=== PATIENT | male | born 1955 | race Caucasian/White ===

== ENCOUNTER 2021-09-29 14:35 | Emergency (ER) | payer MEDICARE, OTHER ==
[~2021-09-29] VITALS: Ht 185.5 cm; Wt 87.0 kg
--- NOTE | 2021-09-29 14:44 | ED GU-Male ---
General Stated Complaint: BACK PAIN Source: patient Exam Limitations: no limitations History of Present Illness Date Seen by Provider: Sep 29, 2021 Time Seen by Provider: 14:37 Initial Comments Patient to the ER by private conveyance with chief complaint of right flank and back pain and some uncomfortable urination starting this morning getting significantly worse. [place] was at the theater and could not finish. He did take some ibuprofen a couple hours ago. He has a history of kidney stones that feel like this. The pain is quite significant waxing and waning. No nausea right now but he had some earlier. No vomiting. No fevers chills diarrhea or constipation. No history of abdominal surgeries or other significant medical history. He does not routinely take any medications. Allergies and Home Medications Allergies Coded Allergies: No Known Drug Allergies (Unverified , 09/29/21) Patient Home Medication List Home Medication List Reviewed: Yes Cephalexin (Cephalexin) 500 Mg Tablet, 500 MG PO BID Prescribed by: WENDI VERA on 09/29/21 1539 Hydrocodone/Acetaminophen (Hydrocodone-Acetamin 5-325 mg) 5 Mg-325 Mg Tablet, 1- 2 TAB PO Q6H PRN for PAIN-MODERATE (5-7) Prescribed by: WENDI VERA on 09/29/21 1539 Ondansetron (Ondansetron Odt) 4 Mg Tab.rapdis, 4 MG PO Q6H PRN for NAUSEA/VOMITING Prescribed by: WENDI VERA on 09/29/21 1539 Review of Systems Review of Systems Constitutional: No chills, No diaphoresis EENTM: No ear discharge, No ear pain Respiratory: No cough, No short of breath Cardiovascular: No chest pain, No edema Gastrointestinal: see HPI, abdominal pain; No constipation, No diarrhea, No nausea, No vomiting Genitourinary: see HPI; denies burning, denies discharge; dysuria, flank pain; denies hematuria Musculoskeletal: back pain; No joint pain All Other Systemes Reviewed Negative Unless Noted: Yes Past Bgezcaj-Toddxk-Clcizk Hx Patient Social History Tobacco Use?: No Use of E-Cig and/or Vaping dev: No Substance use?: No Physical Exam Vital Signs Vital Signs - First Documented 09/29/21 14:35 Temp 36.8 Pulse 78 Resp 24 B/P (MAP) 123/78 (93) Pulse Ox 98 O2 Delivery Room Air Capillary Refill : Height, Weight, BMI Height: '" Weight: lbs. oz. kg; BMI Method: General Appearance: WD/WN, mild distress HEENT: PERRL/EOMI, TMs normal, pharynx normal Neck: full range of motion, supple, normal inspection Cardiovascular: normal peripheral pulses, regular rate, rhythm, no edema Respiratory: lungs clear, normal breath sounds, no respiratory distress, no accessory muscle use Gastrointestinal: normal bowel sounds, non tender, soft Back: CVA tenderness (R) Extremities: normal range of motion, non-tender, normal capillary refill Neurologic/Psychiatric: alert, normal mood/affect, oriented x 3 Skin: normal color, warm/dry Progress/Results/Core Measures Suspected Sepsis SIRS Temperature: Pulse: Respiratory Rate: Laboratory Tests 09/29/21 14:48: White Blood Count 9.3 Blood Pressure / Mean: Laboratory Tests 09/29/21 14:48: Creatinine 1.24, Platelet Count 239, Total Bilirubin 0.6 Results/Orders Lab Results Laboratory Tests Test 09/29/21 14:48 09/29/21 15:11 Range/Units White Blood Count 9.3 4.3-11.0 10^3/uL Red Blood Count 5.02 4.30-5.52 10^6/uL Hemoglobin 14.4 13.3-17.7 g/dL Hematocrit 44 40-54 % Mean Corpuscular Volume 87 80-99 fL Mean Corpuscular Hemoglobin 29 25-34 pg Mean Corpuscular Hemoglobin Concent 33 32-36 g/dL Red Cell Distribution Width 14.0 10.0-14.5 % Platelet Count 239 130-400 10^3/uL Mean Platelet Volume 11.5 9.0-12.2 fL Immature Granulocyte % (Auto) 0 % Neutrophils (%) (Auto) 57 42-75 % Lymphocytes (%) (Auto) 33 12-44 % Monocytes (%) (Auto) 9 0-12 % Eosinophils (%) (Auto) 1 0-10 % Basophils (%) (Auto) 0 0-10 % Neutrophils # (Auto) 5.3 1.8-7.8 10^3/uL Lymphocytes # (Auto) 3.0 1.0-4.0 10^3/uL Monocytes # (Auto) 0.8 0.0-1.0 10^3/uL Eosinophils # (Auto) 0.1 0.0-0.3 10^3/uL Basophils # (Auto) 0.0 0.0-0.1 10^3/uL Immature Granulocyte # (Auto) 0.0 0.0-0.1 10^3/uL Sodium Level 142 135-145 MMOL/L Potassium Level 4.1 3.6-5.0 MMOL/L Chloride Level 107 98-107 MMOL/L Carbon Dioxide Level 23 21-32 MMOL/L Anion Gap 12 5-14 MMOL/L Blood Urea Nitrogen 18 7-18 MG/DL Creatinine 1.24 0.60-1.30 MG/DL Estimat Glomerular Filtration Rate 63 BUN/Creatinine Ratio 15 Glucose Level 125 H 70-105 MG/DL Calcium Level 9.7 8.5-10.1 MG/DL Corrected Calcium 9.5 8.5-10.1 MG/DL Total Bilirubin 0.6 0.1-1.0 MG/DL Aspartate Amino Transf (AST/SGOT) 20 5-34 U/L Alanine Aminotransferase (ALT/SGPT) 20 0-55 U/L Alkaline Phosphatase 81 40-136 U/L Total Protein 6.8 6.4-8.2 GM/DL Albumin 4.2 3.2-4.5 GM/DL Urine Color YELLOW Urine Clarity CLOUDY Urine pH 8.5 5-9 Urine Specific [place] 1.010 L 1.016-1.022 Urine Protein TRACE H NEGATIVE Urine Glucose (UA) NEGATIVE NEGATIVE Urine Ketones TRACE H NEGATIVE Urine Nitrite NEGATIVE NEGATIVE Urine Bilirubin NEGATIVE NEGATIVE Urine Urobilinogen 1.0 < = 1.0 MG/DL Urine Leukocyte Esterase TRACE H NEGATIVE Urine RBC (Auto) 2+ H NEGATIVE Urine RBC 2-5 H /HPF Urine WBC RARE /HPF Urine Squamous Epithelial Cells NONE /HPF Urine Crystals NONE /LPF Urine Amorphous Sediment MOD JASON PHOSPHATE H /LPF Urine Bacteria NEGATIVE /HPF Urine Casts NONE /LPF Urine Mucus NEGATIVE /LPF Urine Culture Indicated NO My Orders Orders - WENDI VERA Cbc With Automated Diff (09/29/21 14:41) Comprehensive Metabolic Panel (09/29/21 14:41) Ed Iv/Invasive Line Start (09/29/21 14:41) Ct Abd/Pelvis Wo(Kidney Stone) (09/29/21 14:41) Ua Culture If Indicated (09/29/21 14:44) Ketorolac Injection (Toradol Injection) (09/29/21 14:45) Ondansetron Injection (Zofran Injectio (09/29/21 15:00) Abdomen/Kub 1view (09/29/21 15:19) Medications Given in ED Current Medications Medications Dose Ordered Sig/Gilberto Route Start Time Stop Time Status Last Admin Dose Admin Ketorolac Tromethamine 30 mg ONCE ONCE IVP 09/29/21 14:45 09/29/21 14:46 DC 09/29/21 14:53 30 MG Ondansetron HCl 8 mg ONCE ONCE IVP 09/29/21 15:00 09/29/21 15:01 DC 09/29/21 15:12 8 MG Vital Signs/I&O 09/29/21 14:35 Temp 36.8 Pulse 78 Resp 24 B/P (MAP) 123/78 (93) Pulse Ox 98 O2 Delivery Room Air Capillary Refill : Progress Note : Time: 14:44 Progress Note Urine labs and a CT without IV contrast kidney stone protocol. 30 mg Toradol. Diagnostic Imaging Diagonstic Imaging: CT Plain Films/CT/US/NM/MRI: abdomen, pelvis Comments Distal to the left ureter about a centimeter proximal to the left UVJ there is a 5 mm stone. NAME: JING BETHEA [employer] REC#: [id number] PT STATUS: REG ER : 1955 PHYSICIAN: WENDI VERA MD ADMIT DATE: 09/29/21/ER Signed Date of Exam:09/29/21 CT ABD/PELVIS WO(KIDNEY STONE) PROCEDURE: CT urinary tract, rule out kidney stone. TECHNIQUE: Multiple contiguous axial images were obtained through the abdomen and pelvis without the use of intravenous contrast. Auto Exposure Controls were utilized during the CT exam to meet ALARA standards for radiation dose reduction. INDICATION: Flank pain. Nausea and vomiting. COMPARISON: None. FINDINGS: The heart is unremarkable. The lung bases are clear. A 5 mm calculus is seen in the distal left ureter just proximal to the left UVJ. There is mild left-sided hydroureteronephrosis. Additional nonobstructing calculi are seen in the left kidney measuring up to 0.4 cm. No hydronephrosis on the right. The urinary bladder is decompressed. The liver, spleen, pancreas and adrenal glands have a normal appearance. The gallbladder is unremarkable. There is no pathologically enlarged mesenteric or retroperitoneal adenopathy. The bowel loops are nondilated. The appendix is visualized in the right lower quadrant and has a normal appearance. Scattered diverticula are seen in the descending and sigmoid colon without evidence of acute diverticulitis. There is no free fluid or free air. No acute osseous abnormality. There is calcified aortic and iliac atherosclerotic plaque without aneurysm. There is no free air, loculated collection or adenopathy in the pelvis. IMPRESSION: 1. Calculus in the distal left ureter measuring 5 mm with mild left-sided hydroureteronephrosis. Additional nonobstructing calculi are seen in the left kidney. 2. Diverticuli in the descending and sigmoid colon without evidence of acute diverticulitis. Dictated by: Dictated on workstation # [id number] Dict: 09/29/21 1517 Trans: 09/29/21 1529 PJE [id number] Interpreted by: DANIELA ALLRED DO Electronically signed by: DANIELA ALLRED DO 09/29/21 1529 Reviewed: Reviewed by Me Diagonstic Imaging: Xray Plain Films/CT/US/NM/MRI: abdomen, pelvis Reviewed: Reviewed by Me Departure Impression Primary Impression: Ureteral calculus Disposition: 01 HOME, SELF-CARE Condition: Stable Departure-Patient Inst. Decision time for Depature: 15:31 Referrals: ALEXANDRA WILKES DO (PCP) Primary Care Physician LINETTE SHARMA MD Patient Instructions: Kidney Stones (DC), How to Strain Your Urine Add. Discharge Instructions: Drink plenty of fluids. Hydrocodone 1 to 2 tablets every 6 hours as needed to control pain. Ondansetron 1 to 2 tablets every 6 hours as needed to control nausea or vomiting. Ibuprofen 800 mg every 8 hours as needed for pain. If you have not passed the stone by tomorrow then call Dr. Sharma, urology and request follow-up on Thursday. Strain your urine to see if you can catch the stone. After the stone is passed typically symptoms will resolve in 1 to 2 days. Cephalexin 1 capsule twice a day for a week to prevent urinary tract infection. Scripts Cephalexin (Cephalexin) 500 Mg Tablet 500 MG PO BID for 7 Days, #14 TAB 0 Refills Prov: WENDI VERA 09/29/21 Hydrocodone/Acetaminophen (Hydrocodone-Acetamin 5-325 mg) 5 Mg-325 Mg Tablet 1-2 TAB PO Q6H PRN for PAIN-MODERATE (5-7), #14 TAB 0 Refills Prov: WENDI VERA 09/29/21 Ondansetron (Ondansetron Odt) 4 Mg Tab.rapdis 4 MG PO Q6H PRN for NAUSEA/VOMITING, #12 TAB 0 Refills Prov: WENDI VERA 09/29/21 Copy Copies To 1: LINETTE SHARMA MD, TITUS J Sep 29, 2021 14:44
[2021-09-29] MEDS ORDERED: KETOROLAC 30 MG/ML VIAL IVP ONE (14:45)
[2021-09-29] MEDS ORDERED: ONDANSETRON 4 MG/2 ML (SDV) Z0FRAN IVP ONE (15:00)
[2021-09-29 15:01] LABS: BASOPHILS % (AUTO) 0 % (0-10); EOSINOPHILS # (AUTO) 0.1 10^3/uL (0.0-0.3); EOSINOPHILS % (AUTO) 1 % (0-10); HEMATOCRIT 44 % (40-54); HEMOGLOBIN 14.4 g/dL (13.3-17.7); LYMPHOCYTES % (AUTO) 33 % (12-44); MEAN CORPUSCULAR HEMOGLOBIN 29 pg (25-34); MEAN CORPUSCULAR HGB CONC 33 g/dL (32-36); MEAN CORPUSCULAR VOLUME 87 fL (80-99); MEAN PLATELET VOLUME 11.5 fL (9.0-12.2); MONOCYTES # (AUTO) 0.8 10^3/uL (0.0-1.0); MONOCYTES % (AUTO) 9 % (0-12); NEUTROPHILS # (AUTO) 5.3 10^3/uL (1.8-7.8); NEUTROPHILS % (AUTO) 57 % (42-75); PLATELET COUNT 239 10^3/uL (130-400); WHITE BLOOD COUNT 9.3 10^3/uL (4.3-11.0)
[2021-09-29 15:02] LABS: ALBUMIN 4.2 GM/DL (3.2-4.5); POTASSIUM 4.1 MMOL/L (3.6-5.0)
[2021-09-29 15:04] LABS: CALCIUM 9.7 MG/DL (8.5-10.1)
[2021-09-29 15:05] LABS: TOTAL PROTEIN 6.8 GM/DL (6.4-8.2)
[2021-09-29 15:06] LABS: BILIRUBIN,TOTAL 0.6 MG/DL (0.1-1.0)
[2021-09-29 15:08] LABS: CREATININE SERUM 1.24 MG/DL (0.60-1.30)
[2021-09-29 15:17] LABS: BILIRUBIN,URINE NEGATIVE (NEGATIVE); CLARITY,URINE CLOUDY; COLOR,URINE YELLOW; GLUCOSE, URINE (UA) NEGATIVE (NEGATIVE); KETONES,URINE TRACE (NEGATIVE); LEUKOCYTE ESTERASE ,URINE TRACE (NEGATIVE); NITRITE,URINE NEGATIVE (NEGATIVE); PH,URINE 8.5 (5-9); PROTEIN,URINE TRACE (NEGATIVE)
--- NOTE | 2021-09-29 15:25 | Diagnostic Imaging Report ---
PROCEDURE: CT urinary tract, rule out kidney stone. TECHNIQUE: Multiple contiguous axial images were obtained through the abdomen and pelvis without the use of intravenous contrast. Auto Exposure Controls were utilized during the CT exam to meet ALARA standards for radiation dose reduction. INDICATION: Flank pain. Nausea and vomiting. COMPARISON: None. FINDINGS: The heart is unremarkable. The lung bases are clear. A 5 mm calculus is seen in the distal left ureter just proximal to the left UVJ. There is mild left-sided hydroureteronephrosis. Additional nonobstructing calculi are seen in the left kidney measuring up to 0.4 cm. No hydronephrosis on the right. The urinary bladder is decompressed. The liver, spleen, pancreas and adrenal glands have a normal appearance. The gallbladder is unremarkable. There is no pathologically enlarged mesenteric or retroperitoneal adenopathy. The bowel loops are nondilated. The appendix is visualized in the right lower quadrant and has a normal appearance. Scattered diverticula are seen in the descending and sigmoid colon without evidence of acute diverticulitis. There is no free fluid or free air. No acute osseous abnormality. There is calcified aortic and iliac atherosclerotic plaque without aneurysm. There is no free air, loculated collection or adenopathy in the pelvis. IMPRESSION: 1. Calculus in the distal left ureter measuring 5 mm with mild left-sided hydroureteronephrosis. Additional nonobstructing calculi are seen in the left kidney. 2. Diverticuli in the descending and sigmoid colon without evidence of acute diverticulitis. Dictated by: Dictated on workstation # [id number]
[2021-09-29 15:30] LABS: AMORPHOUS SEDIMENT,UR MOD AMOR PHOSPHATE /LPF; BACTERIA,URINE NEGATIVE /HPF; WBC,URINE RARE /HPF
[2021-09-29] MEDS ORDERED: CEPH500T PO (15:39)
[2021-09-29] MEDS ORDERED: ACHD5005 PO (15:39)
[2021-09-29] MEDS ORDERED: ONDA4TAB11 PO (15:39)
[2021-09-29 15:49] VITALS: BP 119/74
--- NOTE | 2021-09-29 16:11 | Diagnostic Imaging Report ---
REASON FOR EXAM: Abdominal pain. COMPARISON: CT of the abdomen and pelvis performed earlier the same date. TECHNIQUE: Frontal supine view of the abdomen. FINDINGS: The bowel gas pattern is nondistended. No large collection of free intraperitoneal air is seen. Scattered small amounts of gas and fecal material are present in the colon. Multiple phleboliths are seen in the pelvis. These are not well distinguished from the calculus in the distal left ureter. The nonobstructing calculus in the mid left kidney is noted. The osseous structures are age-appropriate. IMPRESSION: 1. No evidence of bowel obstruction or large collection of free intraperitoneal air. 2. Multiple phleboliths in the pelvis. The calculus in the distal left ureter is not well distinguished from these phleboliths. Dictated by: Dictated on workstation # [id number]
== END 2021-09-29 15:47 | disposition home or self-care (01) ==
LOC: ER 14:40
DX: N13.2 Hydronephrosis with renal and ureteral calculous obstruction (principal)
CPT/HCPCS: 36415; 74018; 74176; 80053; 81000; 85025

== ENCOUNTER → 2021-09-30 | Outpatient (CLI) | payer MEDICARE, OTHER ==
[~2021-09-30] MED LIST: ACHD5005 PO; CEPH500T PO; ONDA4TAB11 PO
== END ==
LOC: PREOP 16:06
PROVIDERS: ATTEND Urology
DX: Z01.818 Encounter for other preprocedural examination (principal); N20.1 Calculus of ureter

== ENCOUNTER → 2021-09-30 | Outpatient (CLI) | payer MEDICARE, OTHER ==
--- NOTE | 2021-09-30 17:45 | Diagnostic Imaging Report ---
INDICATION: Left ureteral calculus. COMPARISON: 09/29/2021. FINDINGS: Two frontal radiographic views of the abdomen were obtained. Multiple well-circumscribed calcifications are again identified projecting over the pelvis bilaterally. Size and number are stable compared to previous exam. Extraosseous calcification is also seen projecting over the left renal shadow, stable compared to prior exam. No unexpected radiopaque foreign bodies are seen. Small bowel loops are nondistended. There is no large collection of free intraperitoneal air. IMPRESSION: 1. Stable pelvic calcifications. 2. Left renal calculus. 3. Nonobstructed small bowel gas pattern. Dictated by: Dictated on workstation # [id number]
== END ==
LOC: RAD 13:26
PROVIDERS: ATTEND Urology
DX: N20.2 Calculus of kidney with calculus of ureter (principal)
CPT/HCPCS: 74018

== ENCOUNTER 2021-10-01 05:51 | Day surgery (SDC) | payer MEDICARE, OTHER ==
[2021-09-30 09:40] VITALS: BP 130/74
[~2021-10-01] VITALS: Ht 185 cm; Wt 87.0 kg
[2021-10-01] VITALS (12 sets, daily range): BP systolic 104–148; BP diastolic 57–82
[2021-10-01] MEDS ORDERED: cefTRIAXone 1 GM PRE-MIX 50 ML IV ONE ×2 (06:23→07:00)
[2021-10-01] MEDS: LACTATED RINGERS 1,000 ML IV SCH ×2 (06:30→08:25)
--- NOTE | 2021-10-01 07:09 | Progress Note-Pre Operative ---
Pre-Operative Progress Note H&P Reviewed The H&P was reviewed, patient examined and no changes noted. Date Seen by Provider: Oct 01, 2021 Time Seen by Provider: 07:09 Date H&P Reviewed: Oct 01, 2021 Time H&P Reviewed: 07:09 Pre-Operative Diagnosis: LT DISTAL URETERAL STONE LINETTE SHARMA MD Oct 01, 2021 07:09
--- NOTE | 2021-10-01 07:15 | Progress Note-Post Operative ---
Post-Operative Progess Note Surgeon (s)/Dentist Attendant (s) Surgeon LINETTE SHARMA MD Dentist Attendant: NONE Pre-Operative Diagnosis LT DISTAL URETERAL STONE Post-Operative Diagnosis SAME Procedure & Operative Findings Date of Procedure 10/01/21 Procedure Performed/Findings CYSTOSCOPY, LT URETEROSCOPY, LT ESWL Anesthesia Type GENERAL Estimated Blood Loss Estimated blood loss (mL): NONE Specimens/Packing Specimens Removed NONE Packing: NONE LINETTE SHARMA MD Oct 01, 2021 07:15
--- NOTE | 2021-10-01 07:17 | Discharge Inst-Urology ---
Discharge Inst-Urology Reconcile Patient Problems Problems Reviewed?: Yes Final Diagnosis LT DISTAL URETERAL STONE Patient Instructions/Follow Up Plan/Assessment/Instructions Please make appointment to been seen in office Saturday 10/14. KUB prior to it. KUB on way home Post ESWL instructions Increase oral fluids for 48 hours and then as needed. Diet and Activity as tolerated. If questions or concerns contact your physician Or seek help at emergency department. LINETTE SHARMA MD Oct 01, 2021 07:17
[2021-10-01] MEDS ORDERED: fentaNYL INJ 100 MCG/2 ML AMP ONE (07:19)
[2021-10-01] MEDS ORDERED: MIDAZOLAM 2 MG/2 ML (VERSED) VIAL ONE (07:20)
[2021-10-01] MEDS ORDERED: proPOfol 200 MG/20 ML (DIPRIVAN) VIAL IV ONE (07:22)
[2021-10-01] MEDS ORDERED: LIDOCAINE PF 2% 5 ML (XYLOCAINE) VIAL ONE (07:23)
--- NOTE | 2021-10-01 08:14 | Diagnostic Imaging Report ---
INDICATION: Lithotripsy, renal stones. COMPARISON: 09/30/2021, 09/29/2021. TECHNIQUE: Single radiograph of abdomen dated 10/01/2021. FINDINGS: Nonobstructive bowel gas pattern. No free air. Stable small calcifications overlying the left renal shadow. Calcifications overlying the pelvis bilaterally appear stable from the prior exam. No acute osseous abnormality. IMPRESSION: Stable appearing examination with left renal calculus and additional pelvic calcifications unchanged from the prior examination. This includes previously noted left UVJ calculus. Dictated by: Dictated on workstation # [id number]
[2021-10-01] MEDS ORDERED: KETOROLAC 30 MG/ML VIAL ONE ×2 (08:42→09:22)
[2021-10-01] MEDS ORDERED: FUROSEMIDE 40 MG/4 ML INJ (LASIX) ONE ×2 (08:42→09:22)
[2021-10-01] MEDS ORDERED: SEVOFLURANE (ULTANE) 15 ML INHAL SOLN ONE (08:43)
[2021-10-01] MEDS ORDERED: CHLORPROMAZINE IV NR (09:30)
[2021-10-01] MEDS ORDERED: NS IV NR (09:30)
--- NOTE | 2021-10-01 11:41 | Diagnostic Imaging Report ---
CLINICAL INDICATION: Patient status post ESWL. EXAM: X-ray of the abdomen with multiple supine and upright views. COMPARISON: X-ray of the abdomen dated 10/01/2021. CT scan of the abdomen and pelvis without contrast dated 09/29/2021. FINDINGS: There is a nonobstructed bowel gas pattern. There is no evidence of abdominal free air. There is a focal calcification again seen overlying the left renal shadow region. The focal calcification overlying the right abdominal region may represent the calcification near the duodenum seen on the comparison CT scan. Previously seen angulated calcification in the medial left pelvis has now resolved and likely represents the stone seen in the distal ureter on the prior exam. Phleboliths are seen in the pelvis. The visualized bones and extra abdominal soft tissues are unremarkable. IMPRESSION: 1: Previously seen calcification in the left pelvis region has resolved and suspected to represent the previously seen stone in the distal left ureter. 2: Stable calcification involving the left kidney region. Dictated by: Dictated on workstation # [id number]
--- NOTE | 2021-10-01 12:39 | Anesthesia-General Post-Op ---
General Patient Condition Mental Status/LOC: Same as Preop Cardiovascular: Satisfactory Nausea/Vomiting: Absent Respiratory: Satisfactory Pain: Controlled Complications: Absent Post Op Complications Complications None Follow Up Care/Instructions Patient Instructions None needed. Anesthesia/Patient Condition Patient Condition Patient is doing well, no complaints, stable vital signs, no apparent adverse anesthesia problems. No complications reported per nursing. NANDA ROACH CRNA Oct 01, 2021 12:39
--- NOTE | 2021-10-01 12:49 | OPERATIVE REPORT ---
DATE OF SERVICE: 10/01/2021 PREOPERATIVE DIAGNOSIS: Left distal ureteral stone. POSTOPERATIVE DIAGNOSES: 1. Left distal ureteral stone. 2. Submeatal stricture. OPERATION PERFORMED: Cystoscopy, left ureteroscopy and left ESWL. SURGEON: Jayce Sharma MD ANESTHESIA: General. COMPLICATIONS: None. DESCRIPTION OF PROCEDURE: Under satisfactory general anesthesia, the patient in lithotomy position, genitalia were prepped and draped in the usual sterile fashion. Cystoscope was introduced. There was a submeatal stricture responding to the scope. The rest of the urethra was normal. The prostate revealed some enlargement with median bar. The bladder revealed some trabeculations. Ureteric orifices were displaced somewhat upward and laterally. There was no foreign body, stone or bladder tumor visualized. Using the foroblique lens, I dilated the left ureteral orifice intramural portion to the level of the stone, which was confirming by fluoroscopy of its position to accommodate a 6.9 Lebanese semi-rigid ureteroscope. I was unable to get to the level of the stone because of curve of the ureter and some narrowing and I did not want to force it, so I removed the ureteroscope, inserted 18-Lebanese Rosales catheter to compress some bleeding from the submeatal stricture stretching. We will remove it at the end of the procedure. We moved the patient to the ESWL table supine. We localized the left distal ureteral stone. Delivered shocks at kV of 6, a total of 2500 shocks completely fragmented the stone, which could not be visualized anymore. The patient received 15 mg of Toradol and 40 mg of Lasix IV at the end of the procedure. He tolerated the procedure and anesthesia well and was sent to recovery room in stable condition. Job ID: [id number] DocumentID: [id number] Dictated Date: 10/01/2021 08:25:04 Shipping And Receiving Specialist Date: 10/01/2021 12:48:19 Dictated By: JAYCE SHARMA MD [facility]
== END 2021-10-01 11:02 | disposition home or self-care (01) ==
LOC: SDC 05:51
PROVIDERS: ATTEND Urology
DX: N20.1 Calculus of ureter (principal); N35.919 Unspecified urethral stricture, male, unspecified site
CPT/HCPCS: 74018; 76000; 87081

== ENCOUNTER 2021-10-14 14:56 | Outpatient (RCR) | payer MEDICARE, OTHER ==
[2021-10-14 15:39] LABS: CALCIUM 9.3 MG/DL (8.5-10.1); CREATININE SERUM 1.09 MG/DL (0.60-1.30); PHOSPHORUS 3.7 MG/DL (2.3-4.7); POTASSIUM 3.8 MMOL/L (3.6-5.0); URIC ACID 4.6 MG/DL (2.6-7.2)
== END 2021-11-06 | disposition home or self-care (01) ==
LOC: LAB 14:56 → EDSTATUS 15:23
PROVIDERS: ATTEND Urology
DX: N20.0 Calculus of kidney (principal)
CPT/HCPCS: 36415; 80048; 82140; 82340; 82507; 82570; 83735; 83945; 83970; 83986; 84100; 84105; 84133; 84300; 84392; 84550; 84560

== ENCOUNTER → 2021-10-14 | Outpatient (CLI) | payer MEDICARE, OTHER ==
--- NOTE | 2021-10-14 15:42 | Diagnostic Imaging Report ---
INDICATION: Left-sided stones. TIME OF EXAM: 1:31 PM CORRELATION is made with prior radiograph from 10/01/2021. Calcific density overlying the lower pole of the left kidney is unchanged. There is a calcific density projected on the right between the right L2 and L3 transverse process. This is suspicious for ureteral calculus. No other urinary tract calculi are seen. Pelvic calcifications likely represent phleboliths. IMPRESSION: Bilateral calcific densities, likely urinary tract in origin, as described. Dictated by: Dictated on workstation # [id number]
== END ==
LOC: RAD 13:07
PROVIDERS: ATTEND Urology
DX: N20.1 Calculus of ureter (principal)
CPT/HCPCS: 74018